=== PATIENT | female | born 1980 | race Caucasian/White ===

== ENCOUNTER 2025-01-15 22:55 | Inpatient (IN) | payer OTHER, SELFPAY ==
[2025-01-15 19:24] VITALS: BP 226/114
[2025-01-15 19:38] VITALS: BMI 64.0
--- NOTE | 2025-01-15 19:41 | ED.GENMED ---
History of Present Illness
General
Chief Complaint: Breathing Problem
Source: patient
Exam Limitations: none
Time Seen by Provider: 01/15/25 19:32
Nursing documentation reviewed up to this point in time: agreed with
History of Present Illness
History of Present Illness:
44-year-old female presents to the emergency department due to shortness of breath, and. Crackles. She felt like she had flu symptoms earlier in the week, and has had worsening shortness of breath. She went to urgent care, and was sent here. She
had fevers earlier. Denies any chest pain.
Past History
Past History
ED Past Medical History: None
ED Past Surgical History:
Social History
Tobacco: Non-smoker
Alcohol: None
Drug: None
Employment: Employed
Review of Systems
Review of Systems
Allergies reviewed?: Yes
All Other Systems: Not applicable
Constitutional: Reports fever
EENT: Reports no symptoms
Respiratory: Reports cough and trouble breathing
Cardiac: Reports no symptoms
ABD/GI: Reports no symptoms
: Reports no symptoms
Musculoskeletal: Reports no symptoms
Skin: Reports no symptoms
Neurological: Reports no symptoms
Endocrine: Reports no symptoms
Hematologic/Lymphatic: Reports no symptoms
Psychiatric: Reports no symptoms
Phy Exam
Physical Exam
Physical Exam:
Physical Exam
General: Afebrile, moderate respiratory distress, hypertensive
Neck: supple. no meningeal signs. normal posterior pharynx
Heart: s1/s2 tachycardia, no murmur. equal radial
pulses.
HEENT: Pupils equal round reactive to light, EOMI
Lungs: Moderate respiratory distress. Rhonchi bilaterally
Abdomen: normal bowel sounds. not tender. no CVAT
Neuro: alert and oriented. no focal neurological deficits cranial nerves II through XII intact
Skin: no rash
Psychiatric: well kept. interactive and cooperative
Extremities: no edema. no calf tenderness. negative homans. good distal pulses
Scores
Heart Failure Risk
Heart Failure Risk Score: Not Applicable
Sepsis
Sepsis Screening
Sepsis Assessment: Sepsis Ruled Out
Sepsis Screen
Sepsis Screen: Sepsis Ruled Out
Date: 01/16/25
Time: 01:33
Course
Orders/Labs/Results
Orders:
Orders
01/15/25 Breakfast
Regular
01/15/25 19:27
EKG [Electrocardiogram (*1)] Urgent
Reason for Study: Tachycardia
EKG- Treatment ONCE
01/15/25 19:38
CR Chest Portable - 1 View Urgent
Comment:
Reason For Exam: short of breath, rhonchi
Reason Study Needs to be Portable: Patient Unstable
01/15/25 19:39
CT Chest PE Study Urgent
Comment:
Reason For Exam: short of breath, tachycardia, hypoxia
01/15/25 19:40
Ipratropium/Albuterol Sulfate [Duoneb] 3 ml INH R NOW STA
01/15/25 19:49
Complete Blood Count/With Diff Urgent
Comprehensive Metabolic Panel Urgent
Lactic Acid Q4H
Comment: CANCEL 2nd LACTIC ACID IF 1st LACTIC ACID IS LESS THAN 2
Prothrombin Time Urgent
Troponin I Urgent
Blood Culture Q30M
TY Source: Blood/Venous
Specimen Description:
01/15/25 20:59
Azithromycin 500 mg/250 ml [Zithromax Infusion] 500 mg in 250 ml IV NOW
CefTRIAXone [Rocephin] 2,000 mg IV NOW STA
01/15/25 21:10
Blood Culture Q30M
TY Source: Blood/Venous
Specimen Description:
01/15/25 21:52
O2 Therapy [RESP] Urgent
High Flow Nasal Cannula FIO2%: 100
Titrate/Wean O2 to maintain O2 sat greater than (%): 94
01/15/25 22:23
COVID-19 Antigen Urgent
Source: Nasal Swab
Influenza A+B Rapid Molecular Urgent
TY Source: Nasal Swab
Specimen Description:
01/15/25 22:26
Admit/Transfer Patient As Directed
Co-Sign Provider:
Level of Care: Inpatient admission
Assign to:: IMU- Intermediate Care
Physician / Group: Jose
Diagnosis: Multifocal Pneumonia, Sepsis
Reason for Hospitalization: Multifocal Pneumonia, Sepsis
Expected length of stay greater than two midnights?: Yes
ELOS- Estimated Length of Stay in days: 3
I certify the patient meets the requirements for IP care: Yes
PRN Pain Medication Management As Directed
May give lesser potent ordered pain med per pt: Yes
preference::
Protocol:: Medication orders for pain may be administered in a
manner that supports deferring to patient preference
when the pt is:
- Requesting an ordered lesser potent pain medication.
Least to most potent pain medications are defined
as: acetaminophen < NSAID < tramadol < opioids
(morphine, oxycodone, hydromorphone).
- Requesting a lesser dose of the same medication IF
ORDERED.
- Requesting a less intrusive route of administration
if both routes are prescribed by the provider (PO <
IV).
01/15/25 22:27
Code Status As Directed
Resuscitation Status: Full Code
01/15/25 23:44
Acetaminophen [Tylenol] 650 mg PO Q4HPRN PRN
Albuterol Nebs [Ventolin Nebules] 2.5 mg INH R Q4HPRN PRN
Lactated Ringers [Lr] 1,000 ml IV 100 mls/hr
01/15/25 23:44
TSH Reflex To Free T4 Routine
Activity As Directed
Activity Level: Ambulate
With Assistance
I/O [Intake/ Output] As Directed
Frequency: Per unit guidelines
Vital Signs As Directed
Frequency: Per unit guidelines
Oxygen Therapy [O2 Therapy] [RESP] Routine
High Flow Nasal Cannula FIO2%: 70
High Flow Nasal Cannula Liter Flow: 50
Titrate/Wean O2 to maintain O2 sat greater than (%): 94
DX Deep Vein Thrombosis Video Routine
01/16/25 06:00
Basic Metabolic Panel IN AM
Complete Blood Count/No Diff IN AM
01/16/25 08:00
Doxycycline [Vibramycin] 100 mg PO Q12
01/16/25 18:00
Enoxaparin Sodium [Lovenox] 40 mg SC QPM
01/17/25 18:00
CefTRIAXone [Rocephin] 1,000 mg IV Q24H
Abnormal Lab Results
01/15/25
19:49
WBC 11.1 H 10^3/uL
(4.8-10.8)
RBC 4.18 L 10^6/uL
(4.20-5.40)
Hgb 11.1 L g/dL
(12.0-16.0)
Hct 34.7 L %
(37.0-47.0)
MCH 26.6 L pg
(27.0-31.0)
MCHC 32.0 L g/dL
(33.0-37.0)
RDW 14.6 H %
(11.5-14.5)
Abs Immat Gran (auto) 0.5 H 10^3/uL
(0-0.05)
Absolute Neuts (auto) 8.6 H 10^3/uL
(1.4-6.5)
Absolute Lymphs (auto) 0.9 L 10^3/uL
(1.2-3.4)
Absolute Monos (auto) 0.9 H 10^3/uL
(0.1-0.6)
Immature Gran % 4.6 H %
(0-0.5)
Neutrophils % 77.5 H %
(42.2-75.2)
Lymphocytes % 8.4 L %
(20.5-51.1)
Glucose 123 H mg/dl
(70-99)
Total Bilirubin 1.7 H mg/dl
(0.2-1.3)
AST 46 H U/L
(14-36)
ALT 51 H U/L
(0-35)
01/15/25 19:49
01/15/25 19:49
Vital Signs
Initial and Last Documented VS:
Initial Vital Signs
Temp Pulse Resp BP Pulse Ox
97.9 F 120 24 226/114 84
01/15/25 19:24 01/15/25 19:24 01/15/25 19:24 01/15/25 19:24 01/15/25 19:24
Last Documented Vital Signs
Temp Pulse Resp BP Pulse Ox
98.2 F 96 40 158/88 94
01/16/25 00:01 01/16/25 00:30 01/16/25 00:30 01/16/25 00:28 01/16/25 01:01
MDM/Problems Addressed
Differential Diagnosis Includes:
PE, pneumonia, respiratory insufficiency
MDM/Problems Addressed:
44-year-old female with respiratory insufficiency, hypoxia, pneumonia. Stable for discharge.
*Radiology
Radiology exam reviewed: radiology read reviewed (CT and chest x-ray shows pneumonia, no PE)
*Pulse Oximetry
Patient hypoxic: yes
*EKG
Interpreted by ED Provider?: Yes
EKG Intrepretation Date: 01/15/25
EKG Intrepretation Time: 19:33
Interpretation: abnormal
Comparison EKG: no comparison EKG present
Heart Rate: 113
Rate: tachycardiac
Rhythm: sinus tachycardia
[place]: normal axis
Interval: normal interval
QRS Pattern: normal QRS
Ischemia: no ischemia
*[employer] Interpretation
Rate: tachycardiac
Interpretation: abnormal
Heart Rate: 112
Rhythm: sinus tachycardia
*Critical Care Note
Total Time (30-74mins, 75-104mins- exclusive of procedures): 30
comment:
Critical care statement: A total of 30 minutes of critical care time was provided for this patient. This includes management of unstable vital signs, evaluation of the patient at bedside, reviewing the patient's pertinent medical records, discussion
with consultants, review of old EKGs and review of pertinent medical records. This time with separate from time utilized to perform the aforementioned documented procedures
Patient Management
Social determinants of health affecting care: Living situation and Strong social support
Discussion with other providers: Hospitalist
Escalation/DeEscalation of care consider admission/obs:
Admit indicated
ED Attending Note
-
Portions of this chart may have been created with voice recognition software.� Occasional wrong word or��sound alike� substitutions may have occurred due to the inherent limitations of voice recognition software.
Discharge Plan
Departure
Patient Disposition: Admit
Date of Disposition: 01/15/25
Time of Disposition: 21:34
Admit to: IMU
Presentation/result/management discussed w/ accepting MD/DO: Hospitalist
Patient with high blood pressure during this ER visit?: Yes
Condition: Fair
Discharge Problem:
Pneumonia, Acute respiratory insufficiency
Interventions
Interventions:
*Risk Screen - Suicide Last Done: 01/15/25 19:26
*General Assessment Last Done: 01/15/25 19:26
*Neglect/Abuse Screening Last Done: 01/15/25 19:26
ED- Fall Risk Assessment Last Done: 01/15/25 19:38
*ED COVID-19 Vaccine History Last Done: 01/15/25 19:26
*Nursing Disposition Last Done: 01/16/25 00:00
ED- Cardiac Assessment Last Done: 01/15/25 19:38
ED- Pulmonary Assessment Last Done: 01/15/25 19:38
Discharge Date and Time
Discharge Date/Time: 01/16/25 00:01
[2025-01-15 19:45] VITALS: BP 155/93
[2025-01-15] MEDS: DUONEB 3 ML INH (19:50)
[2025-01-15 20:00] VITALS: BP 169/95
[2025-01-15 20:36] LABS: % Basophils 0.5 % (0-2); % Eosinophils 0.5 % (0-6); % Immature Granulocytes 4.6 % (0-0.5); % Lymphocytes 8.4 % (20.5-51.1); % Monocytes 8.5 % (1.7-9.3); % Neutrophils 77.5 % (42.2-75.2); Absolute Basophils 0.1 10^3/uL (0-0.2); Absolute Eosinophils 0.1 10^3/uL (0-0.7); Absolute Immature Granulocytes 0.5 10^3/uL (0-0.05); Absolute Lymphocytes 0.9 10^3/uL (1.2-3.4); Absolute Monocytes 0.9 10^3/uL (0.1-0.6); Absolute Neutrophils 8.6 10^3/uL (1.4-6.5); Hematocrit 34.7 % (37.0-47.0); Hemoglobin 11.1 g/dL (12.0-16.0); Mean Corpuscular Hgb 26.6 pg (27.0-31.0); Nucleated Red Blood Cells % 0.3 %; Platelet Count 306 10^3/uL (130-400); Red Blood Cell Count 4.18 10^6/uL (4.20-5.40); Red Cell Dist. Width 14.6 % (11.5-14.5); White Blood Cell Count 11.1 10^3/uL (4.8-10.8)
[2025-01-15 20:46] LABS: INR 1.05
[2025-01-15 20:49] LABS: ALT (SGPT) 51 U/L (0-35); AST (SGOT) 46 U/L (14-36); Albumin 3.7 g/dl (3.5-5.0); Alkaline Phosphatase 114 U/L (38-126); Blood Urea Nitrogen 11 mg/dl (7-17); Calcium 8.6 mg/dl (8.4-10.2); Carbon Dioxide 26 mmol/L (22-30); Chloride 101 mmol/L (98-107); Estimated Creatinine Clearance > 125 ml/min; Glucose 123 mg/dl (70-99); Lactic Acid 0.7 mmol/L (0.7-2.0); Potassium 3.6 mmol/L (3.5-5.1); Sodium 137 mmol/L (135-145); Total Bilirubin 1.7 mg/dl (0.2-1.3); eGFR > 60.00
[2025-01-15 21:01] LABS: Troponin I < 0.012 ng/ml
[2025-01-15] MEDS: ROCEPHIN 2000 MG IV (21:08)
[2025-01-15] MEDS: ZITHROMAX INFUSION 250 IV (21:08)
[2025-01-15 21:09] VITALS: BP 170/83
[2025-01-15 22:00] VITALS: BP 156/84
[2025-01-15 22:50] LABS: COVID-19 Antigen Negative (Negative)
[2025-01-15 23:00] VITALS: BP 151/86
--- NOTE | 2025-01-15 23:02 | HPS.HSE ---
Family Physician
-
Family Physician: Kaykay Alonzo
Chief Complaint
-
Cough, SOB
History of Present Illness
Patient is a 44y F with PMH significant for morbid obesity who presents to ED complaining of cough and SOB. Patient states that she started with cough one week ago. Her symptoms have steadily progressed since that time. She notes diffuse
myalgias, shaking chills and progressive dyspnea - initially with activity and now with rest. Her symptoms today were much more severe and she presented to Urgent Care for evaluation. There she was noted to have SpO2 in the 80s and was referred to
the ED for evaluation.
On arrival to the ED, patient was hypoxemic (84% on room air) and in distress with tachycardia and tachypnea.
At the time of my examination she feels significantly improved on supplemental / high flow O2 with decreased dyspnea, tachypnea, etc.
Medical History
Past Medical History
Past Medical History: Reports Other
Additional Past Medical History:
Obesity
Past Surgical History: Reports Other
Additional Past Surgical History:
Cholecystectomy
Social History
Tobacco: Non-smoker
Alcohol: Occasional
Drug: None
Family History
Family History: Not pertinent
Allergies / Home Medications
Allergies reflects when Allergies were last updated in [facility].
Home Medications with original date entered in [facility]
Allergy/Medication List:
Allergies
Allergy/AdvReac Type Severity Reaction Status Date / Time
No Known Allergies Allergy Unverified 01/15/25 19:25
Home Medications
No Meds [No Current Medications] 01/15/25
Review of Systems
-
History Source: Patient
A 12 point ROS was completed and negative except as noted: Yes
Constitutional: Reports Fever, Fatigue and Chills
EENT: Denies Sore Throat
Respiratory: Reports Cough and Trouble Breathing
Cardiac: Denies Chest Pain or Palpitations
Abdomen/GI: Denies Abdominal Pain, Nausea, Vomiting or Diarrhea
: Denies Dysuria, Frequency or Flank Pain
Musculoskeletal: Denies Joint Pain or Edema
Neurological: Denies Dizzy or Headache
Psych: Denies Depression or Anxiety
Physical Exam
Vital Signs
Vital Signs
Temp Pulse Resp BP Pulse Ox
97.9 F 100 30 156/84 94
01/15/25 19:24 01/15/25 22:00 01/15/25 22:00 01/15/25 22:00 01/15/25 22:00
Physical Exam
General: Other (44y F in moderate distress due to dyspnea.)
HEENT: Other (Thick neck. MMM.)
Respiratory: Other (Coaarse breath sounds diffusely - sparing the RUL. No wheezing.)
Cardiac: S1/S2 and Tachycardia; No Murmur
GI: Soft, Non Tender, Non Distended, Normal Bowel Sounds and Other (Obese.)
Musculoskeletal: No Clubbing, No Cyanosis and No Edema
Neuro: AO x 3
Laboratory Results
-
01/15/25 19:49
01/15/25 19:49
Laboratory Results
PT 14.0 Sec (11.4-14.6) 01/15/25 19:49
INR 1.05 01/15/25 19:49
Lactic Acid Cancelled 01/15/25 23:45
Total Bilirubin 1.7 mg/dl (0.2-1.3) H 01/15/25 19:49
AST 46 U/L (14-36) H 01/15/25 19:49
ALT 51 U/L (0-35) H 01/15/25 19:49
Alkaline Phosphatase 114 U/L (38-126) 01/15/25 19:49
Troponin I < 0.012 ng/ml 01/15/25 19:49
Impression/Plan
-
A/P: Patient is a44y F with PMH significant for morbid obesity who presents to ED complaining of one week of progressive cough, fever and dyspnea.
Multifocal Pneumonia
Acute Hypoxemic Respiratory Failure secondary to the above
Sepsis secondary to the above
- Admit for further evaluation and treatment.
- Patient presents with tachycardia, tachypnea and CXR showing multifocal pneumonia.
- Abx for CAP.
- Continue supportive care with supplemental O2, nebs, etc.
- Follow for clinical improvement.
Morbid Obesity secondary to excess calories
- Affects all aspects of care - especially adding to respiratory issues / hypoxemia / etc.
- Encourage healthy diet and increased activity with goal of weight loss.
DVT Prophylaxis: Lovenox
Code Status: Full
[2025-01-16] VITALS (9 sets, daily range): BP systolic 139–176; BP diastolic 76–98; BMI 63.2
[2025-01-16] MEDS: LR 1000 IV (00:18)
--- NOTE | 2025-01-16 01:03 | PTCARENOTE ---
Pt arrived from ED on high flow. Pt spo2 94% RR30's. B/L lung sounds scattered crackles, coarse with expiatory wheeze. Pt had no complaints of pain and said ' I feel a lot better then when I walked in'. Call gama within reach. Assessment care and
vitals as charted.
[2025-01-16] MEDS: DUONEB 3 ML INH (04:19)
[2025-01-16] MEDS: ROBITUSSIN DM 10 ML PO (05:04)
[2025-01-16] MEDS: MYLICON 80 MG PO (05:04)
[2025-01-16 05:36] LABS: Hematocrit 31.6 % (37.0-47.0); Hemoglobin 10.2 g/dL (12.0-16.0); Mean Corp Hgb Conc. 32.3 g/dL (33.0-37.0); Mean Corpuscular Hgb 26.7 pg (27.0-31.0); Mean Corpuscular Volume 82.7 fL (81.0-99.0); Mean Platelet Volume 8.8 fL (7.4-10.4); Platelet Count 286 10^3/uL (130-400); Red Blood Cell Count 3.82 10^6/uL (4.20-5.40); Red Cell Dist. Width 14.6 % (11.5-14.5); White Blood Cell Count 10.3 10^3/uL (4.8-10.8)
[2025-01-16 05:38] LABS: Blood Urea Nitrogen 10 mg/dl (7-17); Calcium 8.3 mg/dl (8.4-10.2); Carbon Dioxide 26 mmol/L (22-30); Chloride 103 mmol/L (98-107); Estimated Creatinine Clearance > 125 ml/min; Glucose 118 mg/dl (70-99); Sodium 136 mmol/L (135-145); eGFR > 60.00
[2025-01-16 06:07] LABS: TSH Reflex To Free T4 0.68 uIU/ml (0.47-4.68)
[2025-01-16] MEDS: VIBRAMYCIN 100 MG PO ×2 (07:40→20:04)
--- NOTE | 2025-01-16 08:14 | PTCARENOTE ---
Patient received from shift supervisor rn. Patient resting comfortably in bed. AAO, VSS. No events noted overnight. No complaints of some pain at this time. Currently on HighFlow N/C @ 50L 70%, will attempt to wean as tolerated. LR @ 100mL/hr through
IV. No further test scheduled today at this time. Call gama in reach.
[2025-01-16 09:02] LABS: Glycohemoglobin (HgbA1c) 5.1 % (4.0-5.6)
--- NOTE | 2025-01-16 14:49 | W.PN.HOSP.TC ---
Today's Communication/Plan
-
wean o2
can stop ivf
cont iv abx
f/u cultures
incentive cookie
Assessment / Plan
Assessment / Plan
Physical Exam
General: Other (44y F in moderate distress due to dyspnea.)
HEENT: Other (Thick neck. MMM.)
Respiratory: Other (Coaarse breath sounds diffusely - sparing the RUL. No wheezing.)
Cardiac: S1/S2 and Tachycardia; No Murmur
GI: Soft, Non Tender, Non Distended, Normal Bowel Sounds and Other (Obese.)
Musculoskeletal: No Clubbing, No Cyanosis and No Edema
Neuro: AO x 3
A/P: Patient is a 44y F with PMH significant for morbid obesity who presents to ED complaining of one week of progressive cough, fever and dyspnea.
Multifocal Pneumonia
Acute Hypoxemic Respiratory Failure secondary to the above
Sepsis secondary to the above
- Patient presents with tachycardia, tachypnea and CXR showing multifocal pneumonia.
- Abx for CAP.
- Continue supportive care with supplemental O2, nebs, etc.
- Follow for clinical improvement.
Morbid Obesity secondary to excess calories
- Affects all aspects of care - especially adding to respiratory issues / hypoxemia / etc.
- Encourage healthy diet and increased activity with goal of weight loss.
DVT Prophylaxis: Lovenox
Code Status: Full
Anticipated Discharge: > 48 hours
Subjective/Interval History
-
Date of Service: January 16, 2025
no acute events
Objective Data
-
Labs:
Laboratory Results
01/16/25
04:46
WBC 10.3
Hgb 10.2 L
Hct 31.6 L
Plt Count 286
Sodium 136
Potassium 4.0
Chloride 103
Carbon Dioxide 26
BUN 10
Creatinine 0.7
Glucose 118 H
Calcium 8.3 L
Vital Signs:
Vital Signs
Temp Pulse Resp BP Pulse Ox
98.2 F 86 30 139/76 97
01/16/25 11:17 01/16/25 14:00 01/16/25 14:00 01/16/25 14:00 01/16/25 14:00
I&O
01/15/25 01/16/25 01/17/25
06:59 06:59 06:59
Intake Total 1320 / 1320
Output Total 150 / 150
Balance 1170 / 1170
Review of Systems
-
History Source: Patient
All other systems: Not reviewed unless documented
Data Reviewed
-
CT Scan: Report Reviewed by me
Labs: Labs Reviewed by me
[2025-01-16] MEDS: LR IV (15:39)
--- NOTE | 2025-01-16 15:59 | CM ---
Patient with Hx morbid obesity with Dx PNA, sepsis. High flow O2 decreased to 12L today. Receiving IV Abx. Per nurse assessment; requires assist of 1 for mobility.
Met with patient who resides with her and 5 children, ages 18-10, in a 3 story house.
The patient was independent in ADLs and ambulation.
The patient has no DME or prior VN.
PCP - Kaykay Alonzo
Pharmacy - [facility]
Plan watch for any home O2 needs.
Plan home.
[2025-01-16] MEDS: LOVENOX 40 MG SC (17:11)
[2025-01-17] VITALS (12 sets, daily range): BP systolic 132–188; BP diastolic 59–114
--- NOTE | 2025-01-17 01:08 | PTCARENOTE ---
Caring for pt 11p-7a. aaox3, no assessment changes. NSR. Remains on 12LMF, sob on exertion. VSS. Denies pain. Will continue to monitor.
[2025-01-17 06:12] LABS: Hematocrit 32.3 % (37.0-47.0); Hemoglobin 10.3 g/dL (12.0-16.0); Mean Corp Hgb Conc. 31.9 g/dL (33.0-37.0); Mean Corpuscular Hgb 26.5 pg (27.0-31.0); Mean Platelet Volume 8.7 fL (7.4-10.4); Platelet Count 287 10^3/uL (130-400); Red Blood Cell Count 3.89 10^6/uL (4.20-5.40); Red Cell Dist. Width 14.7 % (11.5-14.5); White Blood Cell Count 8.3 10^3/uL (4.8-10.8)
[2025-01-17 06:15] LABS: ALT (SGPT) 48 U/L (0-35); AST (SGOT) 32 U/L (14-36); Albumin 3.2 g/dl (3.5-5.0); Alkaline Phosphatase 92 U/L (38-126); Blood Urea Nitrogen 11 mg/dl (7-17); Calcium 8.5 mg/dl (8.4-10.2); Carbon Dioxide 28 mmol/L (22-30); Chloride 100 mmol/L (98-107); Estimated Creatinine Clearance > 125 ml/min; Glucose 112 mg/dl (70-99); Potassium 4.3 mmol/L (3.5-5.1); Sodium 137 mmol/L (135-145); Total Bilirubin 1.1 mg/dl (0.2-1.3); Total Protein 6.2 g/dl (6.3-8.2); eGFR > 60.00
[2025-01-17] MEDS: VIBRAMYCIN 100 MG PO ×2 (08:13→21:03)
[2025-01-17] MEDS: TESSALON PERLES 200 MG PO ×2 (12:04→21:04)
--- NOTE | 2025-01-17 14:44 | PTCARENOTE ---
Pt presents as assessed. Aox3. Weaned to 8L MFNC by RT. Satting low 90's. OOB to chair throughout the day. Assessment and care as documented. Call gama within reach.
--- NOTE | 2025-01-17 15:27 | W.PN.HOSP.TC ---
Today's Communication/Plan
-
wean o2
cont abx
Norm De La Rosa
Assessment / Plan
Assessment / Plan
Physical Exam
General: Other (44y F in moderate distress due to dyspnea.)
HEENT: Other (Thick neck. MMM.)
Respiratory: Other (Coaarse breath sounds diffusely - sparing the RUL. No wheezing.)
Cardiac: S1/S2 and Tachycardia; No Murmur
GI: Soft, Non Tender, Non Distended, Normal Bowel Sounds and Other (Obese.)
Musculoskeletal: No Clubbing, No Cyanosis and No Edema
Neuro: AO x 3
A/P: Patient is a 44y F with PMH significant for morbid obesity who presents to ED complaining of one week of progressive cough, fever and dyspnea.
Multifocal Pneumonia
Acute Hypoxemic Respiratory Failure secondary to the above
Sepsis secondary to the above
- Patient presents with tachycardia, tachypnea and CXR showing multifocal pneumonia.
- Abx for CAP.
- Continue supportive care with supplemental O2, nebs, etc.
- Follow for clinical improvement.
-improving, continue to wean o2
-o2 goal >92%
Morbid Obesity secondary to excess calories
- Affects all aspects of care - especially adding to respiratory issues / hypoxemia / etc.
- Encourage healthy diet and increased activity with goal of weight loss.
DVT Prophylaxis: Lovenox
Code Status: Full
Anticipated Discharge: 24 - 48 hours
Subjective/Interval History
-
Date of Service: January 17, 2025
feeling better, on 10L
Objective Data
-
Labs:
Laboratory Results
01/17/25
05:35
WBC 8.3
Hgb 10.3 L
Hct 32.3 L
Plt Count 287
Sodium 137
Potassium 4.3
Chloride 100
Carbon Dioxide 28
BUN 11
Creatinine 0.6
Glucose 112 H
Calcium 8.5
Total Bilirubin 1.1
AST 32
ALT 48 H
Alkaline Phosphatase 92
Vital Signs:
Vital Signs
Temp Pulse Resp BP Pulse Ox
97.5 F 86 26 133/59 95
01/17/25 11:09 01/17/25 07:41 01/17/25 07:41 01/17/25 06:00 01/17/25 09:36
I&O
01/16/25 01/17/25 01/18/25
06:59 06:59 06:59
Intake Total 1320 / 1320 1000 / 1000
Output Total 150 / 150
Balance 1170 / 1170 1000 / 1000
Review of Systems
-
History Source: Patient
All other systems: Not reviewed unless documented
Data Reviewed
-
CT Scan: Report Reviewed by me
Labs: Labs Reviewed by me
[2025-01-17] MEDS: LOVENOX 40 MG SC (17:59)
[2025-01-17] MEDS: ROCEPHIN 1000 MG IV (17:59)
[2025-01-17] MEDS: STERILE WATER FOR INJECTION 10 ML IV (17:59)
--- NOTE | 2025-01-17 23:35 | PTCARENOTE ---
Caring for pt overnight. aaox3, pleasant. Now on 7LMF, SOB on exertion. OOB to BR, tolerating great. No pain. Moist frequent cough, Tessalon pearls given. No other issues at this time, will monitor.
[2025-01-18] VITALS (11 sets, daily range): BP systolic 145–173; BP diastolic 59–108
[2025-01-18 06:41] LABS: Hematocrit 31.7 % (37.0-47.0); Hemoglobin 10.5 g/dL (12.0-16.0); Mean Corp Hgb Conc. 33.1 g/dL (33.0-37.0); Mean Corpuscular Hgb 27.4 pg (27.0-31.0); Mean Corpuscular Volume 82.8 fL (81.0-99.0); Platelet Count 278 10^3/uL (130-400); Red Blood Cell Count 3.83 10^6/uL (4.20-5.40); Red Cell Dist. Width 14.5 % (11.5-14.5); White Blood Cell Count 7.5 10^3/uL (4.8-10.8)
[2025-01-18 07:18] LABS: ALT (SGPT) 40 U/L (0-35); AST (SGOT) 23 U/L (14-36); Albumin 3.1 g/dl (3.5-5.0); Alkaline Phosphatase 84 U/L (38-126); Blood Urea Nitrogen 15 mg/dl (7-17); Calcium 8.6 mg/dl (8.4-10.2); Carbon Dioxide 30 mmol/L (22-30); Chloride 102 mmol/L (98-107); Estimated Creatinine Clearance > 125 ml/min; Glucose 115 mg/dl (70-99); Potassium 4.5 mmol/L (3.5-5.1); Sodium 137 mmol/L (135-145); Total Bilirubin 0.7 mg/dl (0.2-1.3); Total Protein 6.2 g/dl (6.3-8.2); eGFR > 60.00
[2025-01-18] MEDS: VIBRAMYCIN 100 MG PO ×2 (10:00→21:52)
--- NOTE | 2025-01-18 13:09 | PTCARENOTE ---
Pt noted to have elevated BP. Dr. Gonzales notified.
--- NOTE | 2025-01-18 14:17 | W.PN.HOSP.TC ---
Today's Communication/Plan
-
wean o2
start Lotrel
Assessment / Plan
Assessment / Plan
Physical Exam
General: Other (44y F in moderate distress due to dyspnea.)
HEENT: Other (Thick neck. MMM.)
Respiratory: Other (Coaarse breath sounds diffusely - sparing the RUL. No wheezing.)
Cardiac: S1/S2 and Tachycardia; No Murmur
GI: Soft, Non Tender, Non Distended, Normal Bowel Sounds and Other (Obese.)
Musculoskeletal: No Clubbing, No Cyanosis and No Edema
Neuro: AO x 3
A/P: Patient is a 44y F with PMH significant for morbid obesity who presents to ED complaining of one week of progressive cough, fever and dyspnea.
Multifocal Pneumonia
Acute Hypoxemic Respiratory Failure secondary to the above
Sepsis secondary to the above
- Patient presents with tachycardia, tachypnea and CXR showing multifocal pneumonia.
- Abx for CAP.
- Continue supportive care with supplemental O2, nebs, etc.
- Follow for clinical improvement.
-improving, continue to wean o2; on 5L today
-o2 goal >92%
Morbid Obesity secondary to excess calories
- Affects all aspects of care - especially adding to respiratory issues / hypoxemia / etc.
- Encourage healthy diet and increased activity with goal of weight loss.
#Essential hypertension
-start Lotrel
DVT Prophylaxis: Lovenox
Code Status: Full
Anticipated Discharge: 24 - 48 hours
Subjective/Interval History
-
Date of Service: January 18, 2025
on 5L
Objective Data
-
Labs:
Laboratory Results
01/18/25
06:25
WBC 7.5
Hgb 10.5 L
Hct 31.7 L
Plt Count 278
Sodium 137
Potassium 4.5
Chloride 102
Carbon Dioxide 30
BUN 15
Creatinine 0.7
Glucose 115 H
Calcium 8.6
Total Bilirubin 0.7
AST 23
ALT 40 H
Alkaline Phosphatase 84
Vital Signs:
Vital Signs
Temp Pulse Resp BP Pulse Ox
97.6 F 90 14 162/98 94
01/18/25 11:42 01/18/25 12:40 01/18/25 12:40 01/18/25 12:40 01/18/25 12:00
I&O
01/17/25 01/18/25 01/19/25
06:59 06:59 06:59
Intake Total 1000 / 1000
Balance 1000 / 1000
Review of Systems
-
History Source: Patient
All other systems: Not reviewed unless documented
Data Reviewed
-
CT Scan: Report Reviewed by me
Labs: Labs Reviewed by me
[2025-01-18] MEDS: LOTREL 5 MG/10 MG 1 CAPSULE PO (16:09)
[2025-01-18] MEDS: LOVENOX 40 MG SC (18:12)
[2025-01-18] MEDS: STERILE WATER FOR INJECTION 10 ML IV (18:12)
[2025-01-18] MEDS: ROCEPHIN 1000 MG IV (18:12)
--- NOTE | 2025-01-18 18:19 | PTCARENOTE ---
Pt presents as assessed. Aox3. Weaned to 5L MFNC by RT. Satting low 90's. OOB to chair and ambulating in room throughout the day. Assessment and care as documented. Call gama within reach.
[2025-01-18] MEDS: TESSALON PERLES 200 MG PO (21:52)
[2025-01-19] VITALS (10 sets, daily range): BP systolic 127–180; BP diastolic 51–117
--- NOTE | 2025-01-19 02:36 | PTCARENOTE ---
Patient AAOx3, pleasant. Bumped up to 6L MFNC while sleeping. Pt snoring. SpO2 95%. Rhonchi and coarse throughout the lungs, dyspneic with exertion. Pt ambulating to the bathroom with assistance with telemetry wires. NSR on tele. BP elevated,
adjusting BP cuff as needed for accurate reading. Call gama within reach.
[2025-01-19 06:57] LABS: Hematocrit 34.6 % (37.0-47.0); Hemoglobin 11.2 g/dL (12.0-16.0); Mean Corp Hgb Conc. 32.4 g/dL (33.0-37.0); Mean Corpuscular Hgb 26.4 pg (27.0-31.0); Mean Corpuscular Volume 81.6 fL (81.0-99.0); Mean Platelet Volume 10.1 fL (7.4-10.4); Platelet Count 202 10^3/uL (130-400); Red Blood Cell Count 4.24 10^6/uL (4.20-5.40); Red Cell Dist. Width 14.5 % (11.5-14.5); White Blood Cell Count 7.3 10^3/uL (4.8-10.8)
[2025-01-19 07:06] LABS: ALT (SGPT) 34 U/L (0-35); AST (SGOT) 22 U/L (14-36); Albumin 3.3 g/dl (3.5-5.0); Alkaline Phosphatase 79 U/L (38-126); Blood Urea Nitrogen 13 mg/dl (7-17); Calcium 8.8 mg/dl (8.4-10.2); Carbon Dioxide 28 mmol/L (22-30); Chloride 101 mmol/L (98-107); Estimated Creatinine Clearance > 125 ml/min; Glucose 109 mg/dl (70-99); Potassium 4.5 mmol/L (3.5-5.1); Sodium 137 mmol/L (135-145); Total Bilirubin 0.7 mg/dl (0.2-1.3); Total Protein 6.5 g/dl (6.3-8.2); eGFR > 60.00
[2025-01-19] MEDS: LOTREL 5 MG/10 MG 1 CAPSULE PO (09:35)
[2025-01-19] MEDS: VIBRAMYCIN 100 MG PO ×2 (09:35→20:05)
--- NOTE | 2025-01-19 15:14 | W.PN.HOSP.TC ---
Today's Communication/Plan
-
wean o2
abx
Assessment / Plan
Assessment / Plan
Physical Exam
General: Other (44y F in moderate distress due to dyspnea.)
HEENT: Other (Thick neck. MMM.)
Respiratory: Other (Coaarse breath sounds diffusely - sparing the RUL. No wheezing.)
Cardiac: S1/S2 and Tachycardia; No Murmur
GI: Soft, Non Tender, Non Distended, Normal Bowel Sounds and Other (Obese.)
Musculoskeletal: No Clubbing, No Cyanosis and No Edema
Neuro: AO x 3
A/P: Patient is a 44y F with PMH significant for morbid obesity who presents to ED complaining of one week of progressive cough, fever and dyspnea.
Multifocal Pneumonia
Acute Hypoxemic Respiratory Failure secondary to the above
Sepsis secondary to the above
- Patient presents with tachycardia, tachypnea and CXR showing multifocal pneumonia.
- Abx for CAP.
- Continue supportive care with supplemental O2, nebs, etc.
- Follow for clinical improvement.
-improving, continue to wean o2; on 3L today
-o2 goal >92%
Morbid Obesity secondary to excess calories
- Affects all aspects of care - especially adding to respiratory issues / hypoxemia / etc.
- Encourage healthy diet and increased activity with goal of weight loss.
#Essential hypertension
-start Lotrel
DVT Prophylaxis: Lovenox
Code Status: Full
Anticipated Discharge: 24 - 48 hours
Subjective/Interval History
-
Date of Service: January 19, 2025
on 3L
Objective Data
-
Labs:
Laboratory Results
01/19/25
05:47
WBC 7.3
Hgb 11.2 L
Hct 34.6 L
Plt Count 202 D
Sodium 137
Potassium 4.5
Chloride 101
Carbon Dioxide 28
BUN 13
Creatinine 0.6
Glucose 109 H
Calcium 8.8
Total Bilirubin 0.7
AST 22
ALT 34
Alkaline Phosphatase 79
Vital Signs:
Vital Signs
Temp Pulse Resp BP Pulse Ox
97.6 F 75 27 155/89 93
01/19/25 11:07 01/19/25 10:07 01/19/25 10:07 01/19/25 10:07 01/19/25 10:10
Review of Systems
-
History Source: Patient
All other systems: Not reviewed unless documented
Data Reviewed
-
CT Scan: Report Reviewed by me
Labs: Labs Reviewed by me
[2025-01-19] MEDS: STERILE WATER FOR INJECTION 10 ML IV (17:56)
[2025-01-19] MEDS: LOVENOX 40 MG SC (17:56)
[2025-01-19] MEDS: ROCEPHIN 1000 MG IV (17:56)
--- NOTE | 2025-01-19 18:04 | CM ---
Patient with Hx morbid obesity with Dx PNA, sepsis. O2 4L. Receiving IV Abx. Per nurse assessment; ambulatory in room.
Plan watch for any home O2 needs.
Plan home.
--- NOTE | 2025-01-19 19:19 | PTCARENOTE ---
Failed O2 wean today tolerated 4L most of the day but back in bed sao2 88% increased to 5L. Using flutter/ IS - demonstrated use and encouraged. Coughing post use, non productive. Ambulated in hallways this pm with Pct on o2/tele. Exhausted
post trip. Denies pain. Pleasant.
[2025-01-20] VITALS (8 sets, daily range): BP systolic 133–167; BP diastolic 50–94; O2SAT 85
--- NOTE | 2025-01-20 04:27 | PTCARENOTE ---
Received pt at change of shift. on 5L NC with pulse ox at 95%. No c/o SOB but does have some KIMBLE. Lungs were diminished and rhonchi at b/l bases. Oral hygiene completed in bathroom. Resting in bed with call gama in reach.
[2025-01-20 04:43] LABS: Hemoglobin 10.9 g/dL (12.0-16.0); Mean Corp Hgb Conc. 32.1 g/dL (33.0-37.0); Mean Corpuscular Hgb 26.5 pg (27.0-31.0); Mean Corpuscular Volume 82.5 fL (81.0-99.0); Mean Platelet Volume 8.7 fL (7.4-10.4); Platelet Count 276 10^3/uL (130-400); Red Blood Cell Count 4.12 10^6/uL (4.20-5.40); Red Cell Dist. Width 14.5 % (11.5-14.5)
[2025-01-20 04:59] LABS: ALT (SGPT) 31 U/L (0-35); AST (SGOT) 22 U/L (14-36); Albumin 3.1 g/dl (3.5-5.0); Alkaline Phosphatase 80 U/L (38-126); Blood Urea Nitrogen 14 mg/dl (7-17); Calcium 8.8 mg/dl (8.4-10.2); Carbon Dioxide 31 mmol/L (22-30); Chloride 100 mmol/L (98-107); Estimated Creatinine Clearance > 125 ml/min; Glucose 113 mg/dl (70-99); Potassium 4.6 mmol/L (3.5-5.1); Sodium 136 mmol/L (135-145); Total Bilirubin 0.7 mg/dl (0.2-1.3); eGFR > 60.00
[2025-01-20] MEDS: LOTREL 5 MG/10 MG 1 CAPSULE PO (09:19)
[2025-01-20] MEDS: VIBRAMYCIN 100 MG PO ×2 (09:19→23:17)
--- NOTE | 2025-01-20 17:33 | W.PN.HOSP.TC ---
Today's Communication/Plan
-
wean o2
abx
Assessment / Plan
Assessment / Plan
Physical Exam
General: Other (44y F in moderate distress due to dyspnea.)
HEENT: Other (Thick neck. MMM.)
Respiratory: Other (Coaarse breath sounds diffusely - sparing the RUL. No wheezing.)
Cardiac: S1/S2 and Tachycardia; No Murmur
GI: Soft, Non Tender, Non Distended, Normal Bowel Sounds and Other (Obese.)
Musculoskeletal: No Clubbing, No Cyanosis and No Edema
Neuro: AO x 3
A/P: Patient is a 44y F with PMH significant for morbid obesity who presents to ED complaining of one week of progressive cough, fever and dyspnea.
Multifocal Pneumonia
Acute Hypoxemic Respiratory Failure secondary to the above
Sepsis secondary to the above
- Patient presents with tachycardia, tachypnea and CXR showing multifocal pneumonia.
- Abx for CAP.
- Continue supportive care with supplemental O2, nebs, etc.
- Follow for clinical improvement.
-improving, continue to wean o2; on 3L today
-o2 goal >92%
Morbid Obesity secondary to excess calories
- Affects all aspects of care - especially adding to respiratory issues / hypoxemia / etc.
- Encourage healthy diet and increased activity with goal of weight loss.
#Essential hypertension
-start Lotrel
DVT Prophylaxis: Lovenox
Code Status: Full
Anticipated Discharge: 24 - 48 hours
Subjective/Interval History
-
Date of Service: January 20, 2025
no acute events
Objective Data
-
Vital Signs:
Vital Signs
Temp Pulse Resp BP Pulse Ox
98 F 87 32 139/85 91
01/20/25 15:05 01/20/25 16:00 01/20/25 16:00 01/20/25 08:56 01/20/25 16:00
I&O
01/19/25 01/20/25 01/21/25
06:59 06:59 06:59
Intake Total 780 / 780
Balance 780 / 780
Review of Systems
-
History Source: Patient
All other systems: Not reviewed unless documented
Data Reviewed
-
CT Scan: Report Reviewed by me
Labs: Labs Reviewed by me
[2025-01-20] MEDS: ROCEPHIN 1000 MG IV (17:59)
[2025-01-20] MEDS: LOVENOX 40 MG SC (18:00)
[2025-01-20] MEDS: OCEAN, SALINE MIST 2 SPRAYS NASAL (18:00)
[2025-01-20] MEDS: STERILE WATER FOR INJECTION 10 ML IV (18:00)
[2025-01-21] VITALS (7 sets, daily range): BP systolic 125–161; BP diastolic 61–99
--- NOTE | 2025-01-21 01:49 | PTCARENOTE ---
Assumed care of pt from jadon RN. Pt aaox3. NSR on monitor hr 80s. Pt denies any pain. 94% on 2L NC. Pt denies SOB but is dyspneic on exertion. Pt NSR on monitor. VS and assessment as documented. Pt completed hygiene. Pt resting in bed with call
gama in reach.
[2025-01-21] MEDS: LOTREL 5 MG/10 MG 1 CAPSULE PO (08:13)
[2025-01-21] MEDS: VIBRAMYCIN 100 MG PO ×2 (08:13→21:23)
--- NOTE | 2025-01-21 09:08 | PTCARENOTE ---
Pt aaox3 pleasant and cooperative. Lungs are coarse at bases . Pt OOB to BR with out incident
[2025-01-21 11:54] LABS: ALT (SGPT) 52 U/L (0-35); AST (SGOT) 41 U/L (14-36); Albumin 4.2 g/dl (3.5-5.0); Alkaline Phosphatase 85 U/L (38-126); Blood Urea Nitrogen 12 mg/dl (7-17); Calcium 9.5 mg/dl (8.4-10.2); Carbon Dioxide 31 mmol/L (22-30); Chloride 97 mmol/L (98-107); Estimated Creatinine Clearance > 125 ml/min; Glucose 115 mg/dl (70-99); Potassium 4.6 mmol/L (3.5-5.1); Sodium 137 mmol/L (135-145); Total Bilirubin 1.2 mg/dl (0.2-1.3); Total Protein 7.6 g/dl (6.3-8.2); eGFR > 60.00
[2025-01-21 12:18] LABS: Hematocrit 39.5 % (37.0-47.0); Hemoglobin 12.7 g/dL (12.0-16.0); Mean Corp Hgb Conc. 32.2 g/dL (33.0-37.0); Mean Corpuscular Hgb 26.7 pg (27.0-31.0); Mean Platelet Volume 8.8 fL (7.4-10.4); Platelet Count 353 10^3/uL (130-400); Red Blood Cell Count 4.76 10^6/uL (4.20-5.40); Red Cell Dist. Width 14.7 % (11.5-14.5); White Blood Cell Count 9.6 10^3/uL (4.8-10.8)
--- NOTE | 2025-01-21 13:51 | W.PN.HOSP.TC ---
Today's Communication/Plan
-
wean o2
ambulation
acapella/incentive cookie
Assessment / Plan
Assessment / Plan
Physical Exam
General: Other (44y F in moderate distress due to dyspnea.)
HEENT: Other (Thick neck. MMM.)
Respiratory: Other (Coaarse breath sounds diffusely - sparing the RUL. No wheezing.)
Cardiac: S1/S2 and Tachycardia; No Murmur
GI: Soft, Non Tender, Non Distended, Normal Bowel Sounds and Other (Obese.)
Musculoskeletal: No Clubbing, No Cyanosis and No Edema
Neuro: AO x 3
A/P: Patient is a 44y F with PMH significant for morbid obesity who presents to ED complaining of one week of progressive cough, fever and dyspnea.
Multifocal Pneumonia
Acute Hypoxemic Respiratory Failure secondary to the above
Sepsis secondary to the above
- Patient presents with tachycardia, tachypnea and CXR showing multifocal pneumonia.
- Abx for CAP. Complete Doxy course; Cont Ceftriaxone
- Continue supportive care with supplemental O2, nebs, etc.
- Follow for clinical improvement.
-improving, continue to wean o2; on 2L today
-o2 goal >92%
Morbid Obesity secondary to excess calories
- Affects all aspects of care - especially adding to respiratory issues / hypoxemia / etc.
- Encourage healthy diet and increased activity with goal of weight loss.
#Essential hypertension
-start Lotrel
DVT Prophylaxis: Lovenox
Code Status: Full
Anticipated Discharge: > 48 hours
Subjective/Interval History
-
Date of Service: January 21, 2025
on 2L
Objective Data
-
Labs:
Laboratory Results
01/21/25
11:24
WBC 9.6
Hgb 12.7
Hct 39.5
Plt Count 353 D
Sodium 137
Potassium 4.6
Chloride 97 L
Carbon Dioxide 31 H
BUN 12
Creatinine 0.8
Glucose 115 H
Calcium 9.5
Total Bilirubin 1.2
AST 41 H
ALT 52 H
Alkaline Phosphatase 85
Vital Signs:
Vital Signs
Temp Pulse Resp BP Pulse Ox
97.8 F 94 31 143/71 92
01/21/25 11:05 01/21/25 12:17 01/21/25 12:17 01/21/25 12:17 01/21/25 12:17
I&O
01/20/25 01/21/25 01/22/25
06:59 06:59 06:59
Intake Total 780 / 780 480 / 480
Balance 780 / 780 480 / 480
Review of Systems
-
History Source: Patient
All other systems: Not reviewed unless documented
Data Reviewed
-
CT Scan: Report Reviewed by me
Labs: Labs Reviewed by me
--- NOTE | 2025-01-21 15:15 | PTCARENOTE ---
Pt to 327 via wc on 1 liter O2. Report to Emiliana DIAZ
[2025-01-21] MEDS: LOVENOX 40 MG SC (17:24)
[2025-01-21] MEDS: STERILE WATER FOR INJECTION 10 ML IV (17:25)
[2025-01-21] MEDS: ROCEPHIN 1000 MG IV (17:25)
[2025-01-22 03:00] VITALS: BP 152/86
[2025-01-22 07:00] VITALS: BP 146/91
[2025-01-22 08:02] LABS: Hematocrit 38.9 % (37.0-47.0); Mean Corp Hgb Conc. 30.8 g/dL (33.0-37.0); Mean Corpuscular Hgb 26.6 pg (27.0-31.0); Mean Corpuscular Volume 86.3 fL (81.0-99.0); Platelet Count 307 10^3/uL (130-400); Red Blood Cell Count 4.51 10^6/uL (4.20-5.40); Red Cell Dist. Width 15.3 % (11.5-14.5); White Blood Cell Count 8.4 10^3/uL (4.8-10.8)
[2025-01-22] MEDS: VIBRAMYCIN 100 MG PO ×2 (08:06→21:12)
[2025-01-22] MEDS: LOTREL 5 MG/10 MG 1 CAPSULE PO (08:06)
[2025-01-22 08:28] LABS: ALT (SGPT) 58 U/L (0-35); AST (SGOT) 41 U/L (14-36); Albumin 3.7 g/dl (3.5-5.0); Alkaline Phosphatase 79 U/L (38-126); Blood Urea Nitrogen 13 mg/dl (7-17); Calcium 9.2 mg/dl (8.4-10.2); Carbon Dioxide 31 mmol/L (22-30); Chloride 101 mmol/L (98-107); Estimated Creatinine Clearance > 125 ml/min; Glucose 107 mg/dl (70-99); Potassium 5.2 mmol/L (3.5-5.1); Sodium 138 mmol/L (135-145); Total Bilirubin 1.1 mg/dl (0.2-1.3); Total Protein 7.1 g/dl (6.3-8.2); eGFR > 60.00
--- NOTE | 2025-01-22 11:30 | PTCARENOTE ---
removed supplemental O2 for 20 min. patient got up and went to the bathroom and POX went down to 88%, with some deep breathing and IS patient was able to restore POX of 91%. placed back on 1L O2 nasal cannula. MD martins
--- NOTE | 2025-01-22 13:31 | W.PN.HOSP.TC ---
Today's Communication/Plan
-
wean o2
ambulation
acapella/incentive cookie
Assessment / Plan
Assessment / Plan
Physical Exam
General: Other (44y F in NAD.)
HEENT: Other (Thick neck. MMM.)
Respiratory: Other (improving breathe sounds; No wheezing.)
Cardiac: S1/S2 and Tachycardia; No Murmur
GI: Soft, Non Tender, Non Distended, Normal Bowel Sounds and Other (Obese.)
Musculoskeletal: No Clubbing, No Cyanosis and No Edema
Neuro: AO x 3
A/P: Patient is a 44y F with PMH significant for morbid obesity who presents to ED complaining of one week of progressive cough, fever and dyspnea.
Multifocal Pneumonia
Acute Hypoxemic Respiratory Failure secondary to the above
Sepsis secondary to the above
- Patient presents with tachycardia, tachypnea and CXR showing multifocal pneumonia.
- Abx for CAP. Complete Doxy course; Cont Ceftriaxone
- Continue supportive care with supplemental O2, nebs, etc.
- Follow for clinical improvement.
-improving, continue to wean o2; on 2L today
-o2 goal >92%
Morbid Obesity secondary to excess calories
- Affects all aspects of care - especially adding to respiratory issues / hypoxemia / etc.
- Encourage healthy diet and increased activity with goal of weight loss.
#Essential hypertension
-start Lotrel
#Mild Transaminitis
-probable 2/2 to abx
-monitor
# Hyperkalemia
� Mild
� Monitor
DVT Prophylaxis: Lovenox
Code Status: Full
Anticipated Discharge: Within 24 hours
Subjective/Interval History
-
Date of Service: January 22, 2025
on 1L, still dips to 88% on RA
Objective Data
-
Labs:
Laboratory Results
01/22/25
07:41
WBC 8.4
Hgb 12.0
Hct 38.9
Plt Count 307
Sodium 138
Potassium 5.2 H
Chloride 101
Carbon Dioxide 31 H
BUN 13
Creatinine 0.8
Glucose 107 H
Calcium 9.2
Total Bilirubin 1.1
AST 41 H
ALT 58 H
Alkaline Phosphatase 79
Vital Signs:
Vital Signs
Temp Pulse Resp BP Pulse Ox
98.1 F 95 18 146/91 92
01/22/25 07:00 01/22/25 07:00 01/22/25 07:00 01/22/25 07:00 01/22/25 07:00
I&O
01/21/25 01/22/25 01/23/25
06:59 06:59 06:59
Intake Total 480 / 480
Balance 480 / 480
Review of Systems
-
History Source: Patient
All other systems: Not reviewed unless documented
Data Reviewed
-
CT Scan: Report Reviewed by me
Labs: Labs Reviewed by me
[2025-01-22 15:00] VITALS: BP 136/86
[2025-01-22] MEDS: STERILE WATER FOR INJECTION 10 ML IV (17:08)
[2025-01-22] MEDS: LOVENOX 40 MG SC (17:08)
[2025-01-22] MEDS: ROCEPHIN 1000 MG IV (17:08)
[2025-01-22 20:38] VITALS: BP 139/65
[2025-01-22] MEDS: ROBITUSSIN DM 10 ML PO (21:18)
[2025-01-22 22:39] VITALS: BP 142/60
[2025-01-23 03:54] VITALS: BP 131/58
[2025-01-23 06:41] LABS: Hematocrit 34.9 % (37.0-47.0); Hemoglobin 11.1 g/dL (12.0-16.0); Mean Corp Hgb Conc. 31.8 g/dL (33.0-37.0); Mean Corpuscular Hgb 26.9 pg (27.0-31.0); Mean Corpuscular Volume 84.7 fL (81.0-99.0); Mean Platelet Volume 9.2 fL (7.4-10.4); Platelet Count 276 10^3/uL (130-400); Red Blood Cell Count 4.12 10^6/uL (4.20-5.40); Red Cell Dist. Width 15.3 % (11.5-14.5); White Blood Cell Count 7.1 10^3/uL (4.8-10.8)
[2025-01-23 06:53] LABS: ALT (SGPT) 50 U/L (0-35); AST (SGOT) 30 U/L (14-36); Albumin 3.4 g/dl (3.5-5.0); Alkaline Phosphatase 77 U/L (38-126); Blood Urea Nitrogen 16 mg/dl (7-17); Carbon Dioxide 30 mmol/L (22-30); Chloride 102 mmol/L (98-107); Estimated Creatinine Clearance > 125 ml/min; Glucose 108 mg/dl (70-99); Potassium 4.9 mmol/L (3.5-5.1); Sodium 136 mmol/L (135-145); Total Bilirubin 1.2 mg/dl (0.2-1.3); Total Protein 6.7 g/dl (6.3-8.2); eGFR > 60.00
[2025-01-23 07:30] VITALS: BP 165/81
[2025-01-23] MEDS: LOTREL 5 MG/10 MG 1 CAPSULE PO (07:52)
[2025-01-23] MEDS: VIBRAMYCIN 100 MG PO (07:52)
--- NOTE | 2025-01-23 08:04 | W.PN.HOSP.TC ---
Addendum entered and electronically signed by Robert Gonzales MD 01/23/25 16:26:
[id number]
Addendum entered and electronically signed by Robert Gonzales MD 01/23/25 16:24:
Ambulated on room air, 94%. No need for oxygen. Discharge on cefdinir for 8 additional days to complete total 14-day course of antibiotics
Follow-up PCP outpatient
Continue Lotrel
Follow-up CBC, BMP outpatient
More than 30 minutes spent in discharge including
Final examination of the patient
Summarizing hospital stay
Instructions for continuing care to all relevant caregivers
Preparation of discharge records, prescriptions, and referral forms
Total time spent (37 in minutes):
Original Note:
Today's Communication/Plan
-
wean o2
ambulation, amb pulse ox once off o2
acapella/incentive cookie
Assessment / Plan
Assessment / Plan
Physical Exam
General: Other (44y F in NAD.)
HEENT: Other (Thick neck. MMM.)
Respiratory: Other (improving breathe sounds; No wheezing.)
Cardiac: S1/S2 and Tachycardia; No Murmur
GI: Soft, Non Tender, Non Distended, Normal Bowel Sounds and Other (Obese.)
Musculoskeletal: No Clubbing, No Cyanosis and No Edema
Neuro: AO x 3
A/P: Patient is a 44y F with PMH significant for morbid obesity who presents to ED complaining of one week of progressive cough, fever and dyspnea.
Multifocal Pneumonia
Acute Hypoxemic Respiratory Failure secondary to the above
Sepsis secondary to the above
- Patient presents with tachycardia, tachypnea and CXR showing multifocal pneumonia.
- Abx for CAP. Completed Doxy course; Cont Ceftriaxone - 14 day course when dc to oral
- Continue supportive care with supplemental O2, nebs, etc.
- Follow for clinical improvement.
-improving, continue to wean o2; attempt home o2 ambulation assessment
-o2 goal >92%
Morbid Obesity secondary to excess calories
- Affects all aspects of care - especially adding to respiratory issues / hypoxemia / etc.
- Encourage healthy diet and increased activity with goal of weight loss.
#Essential hypertension
-start Lotrel
#Mild Transaminitis
-probable 2/2 to abx
-monitor
# Hyperkalemia
� Mild
� Monitor
DVT Prophylaxis: Lovenox
Code Status: Full
Anticipated Discharge: Within 24 hours
Subjective/Interval History
-
Date of Service: January 23, 2025
No acute events
Objective Data
-
Labs:
Laboratory Results
01/23/25
06:16
WBC 7.1
Hgb 11.1 L
Hct 34.9 L
Plt Count 276
Sodium 136
Potassium 4.9
Chloride 102
Carbon Dioxide 30
BUN 16
Creatinine 0.8
Glucose 108 H
Calcium 9.0
Total Bilirubin 1.2
AST 30
ALT 50 H
Alkaline Phosphatase 77
Vital Signs:
Vital Signs
Temp Pulse Resp BP Pulse Ox
97.4 F 78 20 131/58 96
01/23/25 03:54 01/23/25 03:54 01/23/25 03:54 01/23/25 03:54 01/23/25 03:54
I&O
01/22/25 01/23/25 01/24/25
06:59 06:59 06:59
Intake Total 960 / 960
Balance 960 / 960
Review of Systems
-
History Source: Patient
All other systems: Not reviewed unless documented
Data Reviewed
-
CT Scan: Report Reviewed by me
Labs: Labs Reviewed by me
[2025-01-23 11:10] VITALS: BP 130/77
--- NOTE | 2025-01-23 13:00 | CM ---
Addendum entered by Rama Enciso 01/23/25 16:25:
Per physician patient home with no needs. Patient declined VN supports.
Original Note:
Patient seen at bedside. Patient off of O2, waiting for confirmation of home antibiotic needs. CM will continue to follow for discharge planning needs.
Plan; home with VN vs home with antibiotic needs.
[2025-01-23 15:20] VITALS: BP 165/95
--- NOTE | 2025-01-23 16:24 | W.DS.TRANS ---
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
-
Discharge Instructions:
Discharge Diagnosis/Procedures
Multifocal Pneumonia
Acute Hypoxemic Respiratory Failure secondary to
the above
Sepsis secondary to the above
Essential hypertension
Diet Low Cholesterol,Low Fat
Activity As tolerated
Blood Work cbc and cmp in 1 week
Instructions:
Stand-Alone Forms:
Changes to Home Medications: Yes
Discharge Medications:
DC Medications w/original date entered in [facility]
amlodipine 5 mg-benazepril 10 mg capsule 1 cap PO DAILY 30 days #30 caps 01/23/25
cefdinir 300 mg capsule 300 mg PO Q12H 8 days #16 caps 01/23/25
dextromethorphan-guaifenesin 10 mg-100 mg/5 mL oral syrup 10 ml PO Q4HPRN PRN cough #500 mL 01/23/25
Home Medication Changes
amlodipine 5 mg-benazepril 10 mg capsule 1 cap PO DAILY 30 days #30 caps 01/23/25
cefdinir 300 mg capsule 300 mg PO Q12H 8 days #16 caps 01/23/25
dextromethorphan-guaifenesin 10 mg-100 mg/5 mL oral syrup 10 ml PO Q4HPRN PRN cough #500 mL 01/23/25
Pending Results: No
[2025-01-23 16:34] VITALS: BP 149/87
== END 2025-01-23 17:24 | disposition home or self-care (01) | DRG 871 ==
LOC: 3 WEST ACU 22:55
PROVIDERS: Emergency Medicine; ADMITTING PHYSICIAN Hospitalist; ATTENDING PHYSICIAN Internal Medicine; EMERGENCY PHYSICIAN Emergency Medicine; FAMILY PHYSICIAN Family Medicine
DX: A41.9 Sepsis, unspecified organism (principal); J18.8 Other pneumonia, unspecified organism; J96.01 Acute respiratory failure with hypoxia; Z68.44 Body mass index [BMI] 60.0-69.9, adult; Z11.52 Encounter for screening for COVID-19; E66.01 Morbid (severe) obesity due to excess calories; I10 Essential (primary) hypertension; E87.5 Hyperkalemia; R74.01 Elevation of levels of liver transaminase levels
CPT/HCPCS: 71045; 71275; 80048; 80053; 83036; 83605; 84443; 84484; 85025; 85027; 85610; 87040; 87070; 87205; 87502; 87811; 93005; 94640; 96365; 96375; 99291; Q9967